=== PATIENT | male | born 1955 | race Native Hawaiian/Other Pacific Islander ===

== ENCOUNTER 2020-07-23 14:32 | Outpatient (CLI) | payer BC ==
[2020-07-23 15:03] LABS: PLATELET COUNT 218 K/uL (142-355)
== END 2020-07-23 21:05 | disposition home or self-care (01) ==
LOC: LABW 14:32
PROVIDERS: ATTEND Nurse Practitioner
DX: R06.00 Dyspnea, unspecified (principal); R06.02 Shortness of breath
CPT/HCPCS: 36415; 83880; 85027

== ENCOUNTER 2020-08-24 10:14 | Outpatient (CLI) | payer BC | END 2020-08-24 21:27 | disposition home or self-care (01) | LOC: RESP 10:14 | PROVIDERS: ATTEND Internal Medicine Sleep Medicine | DX: R06.02 Shortness of breath (principal) ==

== ENCOUNTER 2020-09-16 08:03 | Outpatient (CLI) | payer BC | END 2020-09-16 21:37 | disposition home or self-care (01) | LOC: CT 08:03 | PROVIDERS: ATTEND Internal Medicine Sleep Medicine | DX: J84.10 Pulmonary fibrosis, unspecified (principal) ==

== ENCOUNTER 2021-01-04 12:07 | Emergency (ER) | payer BC ==
[~2021-01-04] VITALS: Ht 175.3 cm; Wt 93.0 kg
[2021-01-04 12:15] VITALS: BP 138/89; TEMP 97.7
== END 2021-01-04 15:40 | disposition home or self-care (01) ==
LOC: ED 12:07
DX: L98.9 Disorder of the skin and subcutaneous tissue, unspecified (principal)
CPT/HCPCS: 99281

== ENCOUNTER 2021-01-14 19:42 | Outpatient (CLI) | payer BC ==
[2021-01-14 20:19] LABS: PLATELET COUNT 359 K/uL (142-355)
[2021-01-14 20:27] LABS: POTASSIUM 3.1 mmol/L (3.6-5.2)
== END 2021-01-14 20:33 | disposition home or self-care (01) ==
LOC: LABW 19:42
PROVIDERS: ATTEND Nurse Practitioner Family
DX: L03.116 Cellulitis of left lower limb (principal)
CPT/HCPCS: 36415; 80053; 85027

== ENCOUNTER 2021-05-28 08:10 | Outpatient (CLI) | payer BC | END 2021-05-28 19:16 | disposition home or self-care (01) | LOC: CT 08:10 | PROVIDERS: ATTEND Internal Medicine Sleep Medicine | DX: J84.9 Interstitial pulmonary disease, unspecified (principal) ==

== ENCOUNTER 2021-07-19 14:06 | Outpatient (CLI) | payer BC | END 2021-07-19 20:26 | disposition home or self-care (01) | LOC: RAD 14:06 | PROVIDERS: ATTEND Nurse Practitioner Family | DX: J18.0 Bronchopneumonia, unspecified organism (principal) ==

== ENCOUNTER 2021-12-15 13:03 | Outpatient (CLI) | payer BC | END 2021-12-15 19:12 | disposition home or self-care (01) | LOC: RESP 13:03 | PROVIDERS: ATTEND Internal Medicine Sleep Medicine | DX: J44.9 Chronic obstructive pulmonary disease, unspecified (principal) ==

== ENCOUNTER 2023-04-07 10:22 | Outpatient (CLI) | payer BC | END 2023-04-07 19:41 | disposition home or self-care (01) | LOC: CT 10:22 | PROVIDERS: ATTEND Nurse Practitioner Family | DX: J84.89 Other specified interstitial pulmonary diseases (principal) ==

== ENCOUNTER 2023-04-28 07:35 | Outpatient (CLI) | payer BC | END 2023-04-28 20:23 | disposition home or self-care (01) | LOC: LABW 07:35 | PROVIDERS: ATTEND Internal Medicine Sleep Medicine | DX: J84.89 Other specified interstitial pulmonary diseases (principal) | CPT/HCPCS: 36415; 82164; 82550; 85652; 86037; 86038; 86225; 86235; 86331; 86431; 86602; 86606; 86671 ==

== ENCOUNTER 2023-10-10 09:00 | Outpatient (CLI) | payer BC | END 2023-10-10 19:27 | disposition home or self-care (01) | LOC: CT 09:00 | PROVIDERS: ATTEND Nurse Practitioner Family | DX: R93.89 Abnormal findings on diagnostic imaging of other specified body structures (principal); N28.1 Cyst of kidney, acquired | CPT/HCPCS: 36415; 82565; 84520; Q9963 ==